=== PATIENT | female | born 1940 | race Caucasian/White ===

== ENCOUNTER 2025-01-02 08:27 | Emergency (ER) | payer OTHER, MEDICARE, SELFPAY ==
[2025-01-02 08:30] VITALS: BP 221/93
[2025-01-02 08:49] VITALS: BMI 24.3
--- NOTE | 2025-01-02 08:58 | ED.GENMED ---
History of Present Illness
General
Chief Complaint: Flank Pain
Source: patient
Exam Limitations: none
Time Seen by Provider: 01/02/25 08:41
History of Present Illness
History of Present Illness:
84-year-old female presents with fairly constant right flank and lower abdominal pain over the past 2 to 3 days but has had intermittent discomfort over the past 2 weeks. She also notes urinary symptoms. She is nauseous today without any vomiting.
No fever. No history of kidney stones no prior abdominal surgical history. She is not treated for high blood pressure but her blood pressure was elevated at triage. No chest pain or shortness of breath. No other complaints
Past History
Past History
ED Past Medical History: GERD and Hypercholesterolemia
ED Past Surgical History: None
Social History
Tobacco: Non-smoker
Phy Exam
Physical Exam
Physical Exam:
General: Well-appearing but anxious female no acute respiratory distress
HEENT: Normocephalic atraumatic
Heart: Regular rate and rhythm
Lungs: Clear no wheeze
Abdomen is soft tender to the right costovertebral angle and slightly to the right lower abdomen. No guarding or rebound nondistended
Extremities: No cyanosis
Skin is warm no rash, however, there is a tsering on the right flank from using heating pad
Course
Orders/Labs/Results
Orders:
Orders
01/02/25 08:48
Urinalysis Reflex To Culture Urgent
Date Specimen was Collected: 01/02/25
Time Specimen was Collected: 08:43
Urine Microscopic Reflex Cult Urgent
Urine Culture Urgent
RICARDO Source: U
Specimen Description:
Date Specimen was Collected: 01/02/25
Time Specimen was Collected: 08:43
01/02/25 08:57
Ketorolac [Toradol] 15 mg IV NOW STA
Ondansetron Injectable [Zofran] 4 mg IV NOW STA
01/02/25 08:58
CT Abd/pel Without Iv Or Oral Urgent
Comment:
Reason For Exam: right flank pain
01/02/25 09:04
Complete Blood Count/With Diff Urgent
Comprehensive Metabolic Panel Urgent
Abnormal Lab Results
01/02/25 01/02/25
08:48 09:04
MCH 32.1 H pg
(27.0-31.0)
Monocytes % 11.4 H %
(1.7-9.3)
BUN 18 H mg/dl
(7-17)
Glucose 181 H mg/dl
(70-99)
Ur Occult Blood Reflex 2+ A
(Negative)
Urine Nitrite (Reflex) Positive A
(Negative)
Urine Bilirubin 1+ A
(Negative)
Urine Urobilinogen 2+ A
(Neg - 1+)
Leukocyte Esterase Rfl 2+ A
(Negative)
Urine Bacteria (Reflex) Few A
(Negative)
Urine Albumin (Reflex) 1+ A
(Neg - Trace)
01/02/25 09:04
01/02/25 09:04
Vital Signs
Initial and Last Documented VS:
Initial Vital Signs
Temp Pulse Resp BP Pulse Ox
97.9 F 86 16 221/93 97
01/02/25 08:30 01/02/25 08:30 01/02/25 08:30 01/02/25 08:30 01/02/25 08:30
Last Documented Vital Signs
Temp Pulse Resp BP Pulse Ox
97.9 F 71 24 141/79 97
01/02/25 08:30 01/02/25 10:15 01/02/25 09:38 01/02/25 10:00 01/02/25 08:30
MDM/Problems Addressed
Differential Diagnosis Includes:
Right flank and lower abdominal pain. Consider renal colic versus appendicitis versus constipation. Blood pressure elevated likely secondary to anxiety and pain. No neurologic symptoms otherwise to suggest dissection
Check urinalysis and labs. Toradol and Zofran ordered for symptoms CT without contrast ordered
*Critical Care Note
Total Time (30-74mins, 75-104mins- exclusive of procedures): Not Applicable
Update Note
Update Note:
CT scan shows no acute finding. Questionable urinary tract infection on urinalysis. She does have urinary symptoms and some nausea. Will cover for urinary tract infection pending culture. Penicillin is listed as a reaction however she states she
does not usually respond to them or she gets a slight rash. Will try Omnicef. Recommend hydration. Return precautions were given. Son in the room upon reentry and agrees with the plan
ED Attending Note
-
Portions of this chart may have been created with voice recognition software.� Occasional wrong word or��sound alike� substitutions may have occurred due to the inherent limitations of voice recognition software.
Discharge Plan
Departure
Patient Disposition: Home (Routine Discharge)
Date of Disposition: 01/02/25
Time of Disposition: 10:46
Patient with high blood pressure during this ER visit?: No
Discharge Problem:
Acute UTI
Instructions: Flank Pain (DC)
Prescriptions:
New
cefdinir 300 mg capsule
300 mg PO BID Qty: 14 0RF
No Action
cetirizine [Zyrtec] 10 mg Tablet
10 mg PO DAILY
Theragen Tablet
1 tab PO DAILY
omeprazole 20 mg Capsule,Delayed Release(Dr/Ec)
20 mg PO DAILY
methylprednisolone [Medrol (Nigel)] 4 mg tablets,dose pack
4 mg PO DAILY Qty: 21 0RF
Referrals:
Pato Lewis MD [Family Provider] -
Activity Restrictions/Additional Instructions:
Continue with Tylenol or ibuprofen for pain relief. Take antibiotic as directed. Return if worse otherwise follow-up with your doctor
Interventions
Interventions:
*Risk Screen - Suicide Last Done: 01/02/25 08:30
*Neglect/Abuse Screening Last Done: 01/02/25 08:30
*ED- Fall Risk Assessment Last Done: 01/02/25 08:50
*ED COVID-19 Vaccine History Last Done: 01/02/25 08:50
OX-Aicvjh-Rddlhthdce Assessment Last Done: 01/02/25 09:06
ED-Female Genitourinary Assessment Last Done: 01/02/25 09:06
Discharge Date and Time
Print Language: GUINEAN
[2025-01-02] MEDS: TORADOL 15 MG IV (09:05)
[2025-01-02] MEDS: ZOFRAN 4 MG IV (09:06)
[2025-01-02 09:08] LABS: Urine Albumin 1+ (Neg - Trace); Urine Bilirubin 1+ (Negative); Urine Character Clear (Clear); Urine Color Yellow; Urine Glucose Negative (Negative); Urine Ketone Negative (Negative); Urine Leukocyte 2+ (Negative); Urine Nitrite Positive (Negative); Urine Occult Blood 2+ (Negative); Urine Urobilinogen 2+ (Neg - 1+)
[2025-01-02 09:09] VITALS: BP 180/79
[2025-01-02 09:10] LABS: % Basophils 0.8 % (0-2); % Eosinophils 2.4 % (0-6); % Immature Granulocytes 0.4 % (0-0.5); % Lymphocytes 33.3 % (20.5-51.1); % Monocytes 11.4 % (1.7-9.3); % Neutrophils 51.7 % (42.2-75.2); Absolute Eosinophils 0.1 10^3/uL (0-0.7); Absolute Lymphocytes 1.7 10^3/uL (1.2-3.4); Absolute Monocytes 0.6 10^3/uL (0.1-0.6); Absolute Neutrophils 2.6 10^3/uL (1.4-6.5); Hematocrit 39.5 % (37.0-47.0); Hemoglobin 13.5 g/dL (12.0-16.0); Mean Corp Hgb Conc. 34.2 g/dL (33.0-37.0); Mean Corpuscular Hgb 32.1 pg (27.0-31.0); Mean Corpuscular Volume 93.8 fL (81.0-99.0); Mean Platelet Volume 8.2 fL (7.4-10.4); Nucleated Red Blood Cells % 0 %; Platelet Count 251 10^3/uL (130-400); Red Blood Cell Count 4.21 10^6/uL (4.20-5.40); Red Cell Dist. Width 12.3 % (11.5-14.5)
[2025-01-02 09:11] VITALS: BP 180/79
[2025-01-02 09:23] LABS: ALT (SGPT) 16 U/L (0-35); AST (SGOT) 19 U/L (14-36); Albumin 4.3 g/dl (3.5-5.0); Alkaline Phosphatase 64 U/L (38-126); Blood Urea Nitrogen 18 mg/dl (7-17); Carbon Dioxide 27 mmol/L (22-30); Chloride 103 mmol/L (98-107); Estimated Creatinine Clearance 64 ml/min; Glucose 181 mg/dl (70-99); Potassium 4.1 mmol/L (3.5-5.1); Sodium 139 mmol/L (135-145); Total Bilirubin 0.6 mg/dl (0.2-1.3); Total Protein 7.5 g/dl (6.3-8.2); eGFR > 60.00
[2025-01-02 09:30] LABS: Urine Squamous Cell 16-20 /LPF (Few)
[2025-01-02 09:32] LABS: Urine Bacteria Few (Negative); Urine Red Blood Cell 0-2 /HPF (0-2)
[2025-01-02 09:38] VITALS: BP 163/68
[2025-01-02 10:00] VITALS: BP 141/79
[2025-01-02 11:00] VITALS: BP 154/75
== END 2025-01-02 11:09 | disposition home or self-care (01) ==
LOC: EMR 08:27
PROVIDERS: Physician Assistant; EMERGENCY PHYSICIAN Emergency Medicine; FAMILY PHYSICIAN Internal Medicine
DX: N39.0 Urinary tract infection, site not specified (principal); E78.00 Pure hypercholesterolemia, unspecified
CPT/HCPCS: 96374; 96375; 99284; 74176; 80053; 81003; 81015; 85025; 87086